=== PATIENT | female | born 1970 | race Caucasian/White ===

== ENCOUNTER 2016-12-05 16:10 | Emergency (ER) | payer BC ==
[~2016-12-05] VITALS: Ht 167.6 cm; Wt 94.5 kg
[~2016-12-05 16:10] MED LIST: APIX5TAB PO; FER325 PO; IBUP-1542 PO; ORPH100T PO
[2016-12-05 16:12] VITALS: Ht 167.6 cm; Wt 94.5 kg
[2016-12-05 17:00] VITALS: BP 141/96; PULSE 69; RESP 16; TEMP 98.1
--- NOTE | 2016-12-05 17:47 | ERD ---
ER Documentation Chief Complaint Date/Time DATE: 12/05/16 TIME: 17:34 Chief Complaint RASH AND ITCHING ON B/L LEGS HPI This pleasant 46-year-old Vietnamese-speaking female presents to emergency department today with complaint of bilateral lower extremity rash, patient reports rash is somewhat painful, reports itching, denies burning. Patient denies any other complaints, no fever chills, denies nausea or vomiting ROS All systems reviewed and are negative except as per history of present illness. Medications Home Meds Active Scripts Betamethasone Dipropionate* (Betamethasone Dipropionate*) 0.05% - 15 Gm Oint, 1 APPLIC TOP BID for 7 Days, TUB APPLY TO: Prov:BETZAIDA,NEYMAR 12/05/16 Cephalexin* (Keflex*) 500 Mg Capsule, 500 MG PO QID for 10 Days, CAP Prov:BETZAIDA,NEYMAR 12/05/16 Orphenadrine Citrate (Norflex) 100 Mg Tablet.sa, 100 MG PO BID, #6 TAB.SA Prov:JOCELYNN DOLL 01/18/16 Ibuprofen* (Motrin*) 600 Mg Tab, 600 MG PO Q8, #10 TAB Prov:JOCELYNN DOLL 01/18/16 Ferrous Sulfate* (Ferrous Sulfate*) 325 Mg Tabec, 325 MG PO TID for 30 Days Prov:ERIKA GASPAR S. 05/21/15 Apixaban* (Eliquis*) 5 Mg Tablet, 5 MG PO BID, #30 6 Refills Prov:ERIKA GASPAR S. 05/21/15 Apixaban* (Eliquis*) 5 Mg Tablet, 10 MG PO BID for 7 Days Prov:ERIKA GASPAR S. 05/21/15 Allergies Allergies: Coded Allergies: No Known Allergy (Verified , 05/20/15) PMhx/Soc History of Surgery: Yes (CSECTION X2) Anesthesia Reaction: No Hx Neurological Disorder: No Hx Respiratory Disorders: No Hx Cardiac Disorders: Yes (HTN) Hx Psychiatric Problems: No Hx Miscellaneous Medical Probl: Yes (ULCER IN LEFT LEG) Hx Alcohol Use: No Hx Substance Use: No Hx Tobacco Use: No Physical Exam Vitals Vital Signs Date Time Temp Pulse Resp B/P Pulse Ox O2 Delivery O2 Flow Rate FiO2 12/05/16 17:00 98.1 69 16 141/96 100 Room Air 12/05/16 16:12 98.8 92 18 108/77 98 Physical Exam Const: No acute distress Head: Atraumatic Eyes: Normal Conjunctiva ENT: Normal External Ears, Nose and Mouth. Neck: Full range of motion..~ No meningismus. Resp: Clear to auscultation bilaterally Cardio: Regular rate and rhythm, no murmurs Abd: Soft, non tender, non distended. Normal bowel sounds Skin: Bilateral lower extremities and top of right foot present with multiple erythemic plaques, raised red papules, lichenification and scratch heck. Lesions do not extend to any other area of the body Back: No midline or flank tenderness Ext: No cyanosis, or edema Neur: Awake and alert Psych: Normal Mood and Affect Procedures/MDM This 46-year-old female presents to the emergency room for complaint of lower extremity rash. Patient reports rash has been present for several days. Patient denies any new lotions soaps or products. Rash is not vesicular. Shingles is not suspected. Rash does not appear viral. Likely contact dermatitis with secondary staph infection. Patient will be treated with Keflex , and betamethasone . Return to emergency room for worsening of symptoms, rash spreading to other areas of body. I feel the patient is stable for discharge and outpatient management by primary physician I have discussed results, examination findings, the treatment plan with the patient and family present prior to discharge. Indications for emergent reevaluation, side effects of medication were also discussed. All questions were answered. Patient verbalizes understanding and agrees with plan of care. Departure Diagnosis: Primary Impression: Rash and other nonspecific skin eruption Condition: Good Patient Instructions: Self-Care for Skin Rashes [facility] Additional Instructions: Thank you for for coming to [facility] for your care today. Please ask your nurse or provider if you have questions about your care today and do not leave until all your questions have been answered. Please use any medications given as directed and follow-up with your doctor (or the doctor you were referred to) in the next 2-3 days. If you do not have a primary care doctor you may follow up at the [facility] (listed below). You may also use motrin and tylenol as needed for fever and/or pain unless instructed otherwise by your provider or nurse. Indications for more urgent follow-up have been discussed, but you may return to the Emergency Department at ANY time for any worrisome or worsening symptoms. If you have abdominal pain, please know that no test or exam you received is perfect and you should follow up within 8 hours for continued pain. If you had any imaging studies today, such as an X-Ray or CT Scan, these studies will be reviewed later by a radiologist. You will be called if there are important findings that were not identified today, so make sure the contact information you provided at registration is correct. If you received any narcotic pain control medicine today, such as Vicodin, Morphine or Dilaudid, your coordination and judgment may be affected for a number of hours. Please do not drive or operate heavy machinery, and you may want someone to assist you at home. If you were given a prescription for narcotic medication, be aware that it is very addictive- use sparingly and only if necessary. NEYMAR HUSTON December 05, 2016 17:46
[2016-12-05] MEDS ORDERED: CEPH-443 PO (17:48)
[2016-12-05] MEDS ORDERED: BTM.05O15 TOP (17:49)
== END 2016-12-05 18:11 | disposition home or self-care (01) ==
LOC: FTE 16:10
DX: R21 Rash and other nonspecific skin eruption (principal); I10 Essential (primary) hypertension; Z79.01 Long term (current) use of anticoagulants
CPT/HCPCS: 99284

== ENCOUNTER 2017-01-02 11:21 | Emergency (ER) | payer BC ==
[~2017-01-02] VITALS: Ht 165.1 cm; Wt 93.0 kg
[~2017-01-02 11:21] MED LIST changes: +BTM.05O15 TOP; +CEPH-443 PO
[2017-01-02 11:23] VITALS: Ht 165.1 cm; Wt 93.0 kg
[2017-01-02] MEDS ORDERED: DOXY100T20 PO (11:44)
--- NOTE | 2017-01-02 12:38 | ERD ---
ER Documentation Chief Complaint Date/Time DATE: 01/02/17 TIME: 12:34 Chief Complaint abcess on left leg x 2 days HPI This patient is a 46-year-old female presenting to the emergency department for complaints of a bump on the medial part of her left thigh. This began 2 days ago. Symptoms are worse with walking. The patient denies having these symptoms in the past. She denies any drainage from the area. She denies fevers , chills, or other symptoms at this time. Symptoms are currently mild in severity. ROS All systems reviewed and are negative except as per history of present illness. Medications Home Meds Active Scripts Doxycycline Hyclate* (Doxycycline Hyclate*) 100 Mg Tablet.dr, 100 MG PO BID for 10 Days, #20 TAB Prov:SACHIN TOURE PA-C 01/02/17 Betamethasone Dipropionate* (Betamethasone Dipropionate*) 0.05% - 15 Gm Oint, 1 APPLIC TOP BID for 7 Days, TUB APPLY TO: Prov:BETZAIDA,NEYMAR 12/05/16 Cephalexin* (Keflex*) 500 Mg Capsule, 500 MG PO QID for 10 Days, CAP Prov:BETZAIDA,NEYMAR 12/05/16 Orphenadrine Citrate (Norflex) 100 Mg Tablet.sa, 100 MG PO BID, #6 TAB.SA Prov:JOCELYNN DOLL 01/18/16 Ibuprofen* (Motrin*) 600 Mg Tab, 600 MG PO Q8, #10 TAB Prov:JOCELYNN DOLL 01/18/16 Ferrous Sulfate* (Ferrous Sulfate*) 325 Mg Tabec, 325 MG PO TID for 30 Days Prov:ERIKA GASPAR S. 05/21/15 Apixaban* (Eliquis*) 5 Mg Tablet, 5 MG PO BID, #30 6 Refills Prov:ANANT GASPAREEP S. 05/21/15 Apixaban* (Eliquis*) 5 Mg Tablet, 10 MG PO BID for 7 Days Prov:ANANT GASPAREEP S. 05/21/15 Allergies Allergies: Coded Allergies: No Known Allergy (Verified , 01/02/17) PMhx/Soc Medical and Surgical Hx: pt denies Medical Hx History of Surgery: Yes (CSECTION X2) Anesthesia Reaction: No Hx Neurological Disorder: No Hx Respiratory Disorders: No Hx Cardiac Disorders: Yes (HTN) Hx Psychiatric Problems: No Hx Miscellaneous Medical Probl: Yes (ULCER IN LEFT LEG) Hx Alcohol Use: No Hx Substance Use: No Hx Tobacco Use: No Smoking Status: Never smoker FmHx Noncontributory for chief complain Physical Exam Vitals Vital Signs Date Time Temp Pulse Resp B/P Pulse Ox O2 Delivery O2 Flow Rate FiO2 01/02/17 11:23 98.2 88 18 181/90 99 Physical Exam Const: Nontoxic, well-appearing female in no acute distress. Head: Atraumatic Eyes: Normal Conjunctiva ENT: Normal External Ears, Nose and Mouth. Neck: Full range of motion..~ No meningismus. Resp: Clear to auscultation bilaterally Cardio: Regular rate and rhythm, no murmurs Abd: Soft, non tender, non distended. Normal bowel sounds Skin: No petechiae or rashes Back: No midline or flank tenderness Ext: There is a 1 cm x 1 cm indurated area with some associated erythema. There is no active drainage. There are no signs of significant cellulitis. There are venous stasis ulcers present to the left lower extremity without signs of cellulitis. Neur: Awake and alert Psych: Normal Mood and Affect Procedures/MDM 46-year-old female presents to the emergency department secondary to complaints of a "lump" to the left medial thigh which she has noticed for 2 days. On physical examination the patient's blood pressure is elevated at 181/90. Patient's blood pressure was elevated (>120/80) but appears stable without evidence of hypertension emergency or urgency. The patient was counseled about the risks of hypertension and urged to pursue outpatient monitoring and therapy within a week with their primary care physician. Examination of the left upper thigh reveals a possible early abscess with some induration and associated erythema. I spoke with the supervising physician, Dr. Raymundo Huston, who evaluated the patient bedside and agreed with the clinical impression and outpatient management plan with a prescription for doxycycline. The patient is to return to the department immediately for any new or worsening symptoms. She demonstrates good understanding of this information. Close follow-up with primary care physician advised. I low suspicion for disseminated cellulitis, septicemia, or other emergent conditions. Departure Diagnosis: Primary Impression: Abscess Condition: Stable Patient Instructions: Abscess, Antiobiotic Treatment Only Ref[facility]: [facility] Usted se cavanaugh hecho un examen mdico de control que le indica que no est en bisi condicin que requiera tratamiento urgente en el Departamento de Emergencia. Un estudio ms profundo y el tratamiento de lawrence condicin pueden esperar sin ningn riesgo hasta que usted sea atendida/o en el consultorio de lawrence mdico o bisi cl blanqutia. Es responsabilidad suya arreglar bisi anne-marie para el seguimiento del marcelo. MANEJO DE CONDICIONES NO URGENTES EN EL FUTURO 1) Si usted tiene un mdico de atencin primaria: Usted debera llamar a lawrence mdico de atencin primaria antes de venir al departamento de emergencia. Despus de las horas de consultorio, lawrence doctor o lawrence asociado/a est disponible por telfono. El mdico o enfermero de dariana en el servicio telefnico puede asesorarle por parag medio para atender el problema, o marcelo contrario se puede programar bisi anne-marie. 2) Si usted no tiene un mdico de atencin primaria: Llame al mdico o clnica de referencia que aparece abajo janna las horas de consultorio para hacer bisi anne-marie para que le vean. CLINICAS: [facility] [id number] [facility] [phone] [facility] [phone] [facility] [phone] [place] [id number] [phone] [facility]. [phone] [address] Additional Instructions: No mas mejor en 2-3 sue, regresar. Mas peor en 24 horas, regresear rapidamente. Ir a doctor primario in 5-7 sue. Usar instrucciones cuando nadege medicamento. SACHIN TOURE PA-C Jan 02, 2017 12:38
== END 2017-01-02 12:08 | disposition home or self-care (01) ==
LOC: FTE 11:21
DX: L02.416 Cutaneous abscess of left lower limb (principal); I10 Essential (primary) hypertension
CPT/HCPCS: 99283

== ENCOUNTER 2017-08-03 09:43 | Emergency (ER) | END 2017-08-03 14:12 | disposition home or self-care (01) ==

== ENCOUNTER 2017-11-13 13:04 | Emergency (ER) | END 2017-11-13 14:53 | disposition home or self-care (01) ==

== ENCOUNTER 2018-07-10 08:49 | Emergency (ER) | END 2018-07-10 11:22 | disposition home or self-care (01) ==